=== PATIENT | female | born 1960 | race African-American/Black ===

== ENCOUNTER 2019-12-29 18:25 | Observation (INO) | payer MEDICARE, MEDICAID, SELFPAY ==
--- NOTE | ~2019-12-29 | XR_ITS ---
EXAMINATION: XR chest 1V portable 12/29/2019 20:51 INDICATION: Dyspnea. Weakness and vomiting. PROCEDURE: AP portable chest COMPARISON: No prior studies for comparison. FINDINGS: The lungs are clear. The cardiomediastinal silhouette is within normal limits. There are no pleural effusions. There is no pneumothorax suspected. There are degenerative changes of the rig ht shoulder. IMPRESSION: 1: NO ACUTE CARDIOPULMONARY DISEASE. Reviewed, dictated and finalized at location A.
--- NOTE | ~2019-12-29 | CT_ITS ---
EXAMINATION: CT abdomen pelvis w con DATE: 12/29/2019 22:02 INDICATION: Stomachache. Vomiting blood. TECHNIQUE: Computed tomography (CT) of the abdomen and pelvis was performed with 100 cc Omnipaque 350 intravenous contrast. The dose-length product was 416.68 mGy-cm. Automated exposure control and iter ative reconstruction technique were employed. COMPARISON: None. FINDINGS: There is bibasilar atelectasis. Heart size is normal. There is a small hiatal hernia. There is thickening of the esophagus, compatible with esophagitis. There is fatty infiltration of the live r. The spleen, pancreas, adrenal glands and kidneys are unremarkable. Gallbladder is present. There i s atherosclerosis of the aorta. No aneurysm. No lymphadenopathy. Normal appendix. No acute osseous ab normality.No lymphadenopathy. No free air or free fluid IMPRESSION: 1. Abnormal thickening of the mid and distal esophagus with the tarsal enhancement, compatible with e sophagitis. Small hiatal hernia. Reviewed, dictated and finalized at location A. IMPRESSION: 1. Abnormal thickening of the mid and distal esophagus with the tarsal enhancem ent, compatible with esophagitis. Small hiatal hernia.
[2019-12-29 19:05] VITALS: BP 121/90; PULSE 118; RESP 16; TEMP 37; O2SAT 100
[2019-12-29 19:28] LABS: Basophils Percent Auto 0.3 % (0.2-1.2); Eosinophils Absolute Auto 0.3 K/mm3 (0-0.3); Eosinophils Percent Auto 2.2 % (0-4.4); Hematocrit 38.4 % (37.0-47.0); Hemoglobin 12.4 g/dL (12.0-15.0); Immature Granulocyte Absolute 0.04 K/mm3 (0.00-0.031); Immature Granulocyte Percent A 0.3 % (0-0.5); Lymphocytes Absolute Auto 3.65 K/mm3 (0.9-3.2); Lymphocytes Percent Auto 26.4 % (18.3-44.2); Mean Corpuscular HGB Conc 32.3 g/dl (32-36); Mean Corpuscular Hemoglobin 27.3 pg (26-34); Mean Corpuscular Volume 84.4 fl (80-100); Mean Platelet Volume 8.4 fl (7.4-10.4); Monocytes Percent Auto 7.3 % (2.6-8.5); Neutrophils Absolute Auto 8.8 K/mm3 (1.3-6.7); Neutrophils Percent Auto 63.5 % (45.5-73.1); Platelet Count Result 473 k/mm3 (150-375); Red Blood Count 4.55 M/mm3 (4.2-5.4); Red Cell Distribution Width 14.1 % (11.5-14.5); White Blood Count 13.8 K/mm3 (4.5-10.0)
[2019-12-29 19:36] LABS: Prothrombin Time 12.7 Seconds (11.1-14.7)
[2019-12-29 19:37] LABS: Partial Thromboplastin Time 26.9 SECONDS (22.3-36.8)
[2019-12-29 19:38] LABS: Alanine Aminotransferase 24 U/L (4-35); Albumin Level 4.9 g/dL (3.5-5.1); Alkaline Phosphatase 102 U/L (38-126); Aspartate Amino Transferase 22 U/L (14-36); Bilirubin,Total 0.4 mg/dL (0.2-1.3); Blood Urea Nitrogen 23 mg/dL (7-17); Calcium 9.8 mg/dL (8.4-10.2); Carbon Dioxide 27 mmol/L (22-30); Chloride 96 mmol/L (98-107); Estimated CRCL calculation 46 ml/min; Estimated Glomerular Filt Rate 57; Glucose 149 mg/dL (65-105); Sodium 137 mmol/L (137-145)
--- NOTE | 2019-12-29 20:37 | ECG_ITS ---
Measurements Intervals [place] Rate: 114 P: 61 HI: 143 QRS: 16 QRSD: 76 T: 38 QT: 346 QTc: 477 Interpretive Statements [address]US [address] ELEVATION IN ANTERIOR LEADS- PROBABLY EARLY REPOLARIZATION BORDERLINE T WAVE ABNORMALITY- INFERIOR LEADS BASELINE ARTIFACT- I, II, AVR, V4 ABNORMAL ECG Electronically Signed On 12-30-2019 7:00:04 CDT by Won Chase D.O.
--- NOTE | 2019-12-29 20:49 | PC.NURSE ---
Spoke with Janee at [facility]. The pt c/o stomach ache, and vomited bright red blood x 1 , approx one basin full. Dr. Love made aware.
--- NOTE | 2019-12-29 20:59 | ED.GIBLEED ---
HPI - GI Bleed General Chief complaint: GI Bleed Stated complaint: vomited blood x1 Time Seen by Provider: 12/29/19 20:17 Source: patient Mode of arrival: EMS History of Present Illness HPI Narrative: This patient is a 59 year old female from [facility] who presents for evaluation of vomiting blood . Patient states she had nausea and vomiting for 3 days. She had 1 episode of diarrhea this morning. She states she was sent her because the last time she vomiting prior to coming it was blood in the emesis. She is unsure if there was blood. Nursing staff called the long-term , and they state patient vomited bright red blood and she reports abdominal pain to them. PAtient denies history of GI bleeding or liver disease. She denies chest pain, sob, or abdominal pain. Related Data Allergies Allergy/AdvReac Type Severity Reaction Status Date / Time No Known Allergies Allergy Verified 12/29/19 21:21 Review of Systems Review of Systems: All systems reviewed & are unremarkable except as noted in HPI and below Constitutional: Constitutional: Denies chills, Denies fever(s) and Denies weakness Respiratory: Respiratory: Denies cough, Denies dyspnea and Denies wheezing Gastrointestinal: Gastrointestinal: Reports abdominal pain, Reports diarrhea, Reports nausea and Reports vomiting Genitourinary: Genitourinary: Denies hematuria and Denies flank pain PMF Past Medical History Medical History (Updated 12/30/19 @ 00:15 by Abby Love MD) Chronic kidney disease Diabetes mellitus Hyperlipidemia Myocardial infarct, old Surgical History Surgical History (Updated 12/29/19 @ 21:06 by Abby Love MD) Amputation of right hand Social History Social History (Updated 12/29/19 @ 21:07 by Abby Love MD) Living arrangements: long-term Gender identity (if verbalized by the patient): Female Exam Eyes: EOM: EOMs intact bilaterally Chest: Chest palpation & inspection: normal inspection of the chest Resp: Effort & Inspection: normal respiratory effort and no retractions Auscultation: clear to auscultation bilaterally Cardio: Rate: tachycardic Rhythm: regular rhythm Heart sounds: no murmurs GI: GI Palp: Yes Soft to palpation, No Tenderness to palpation present (GI), No Guarding due to palpation present (GI) and No Rigid due to palpation Rectal Exam: normal sphincter tone and heme positive stool (brown stool) Skin: General skin exam: normal color Rashes: no rashes Neuro: General: patient oriented x3 and moves all extremities Extrem: Other: right hand with scars from partial hand amputation Course Consultations Consultation #1: I spoke with Dr. Santiago Shaw who agrees to consults and Protonix q12, no other recommendations. Date: 12/29/19 Time: 22:25 Consultation #2: I discussed case with Dr. Mccarthy who accepts patient to [facility] Date: 12/29/19 Time: 22:32 Vital Signs Vital signs: Vital Signs Temperature 98.6 F 12/29/19 19:05 Pulse Rate 118 H 12/29/19 19:05 Respiratory Rate 16 12/29/19 19:05 Blood Pressure 121/90 12/29/19 19:05 Pulse Oximetry 100 12/29/19 19:05 Temperature 98.5 F 12/29/19 22:21 Pulse Rate 110 H 12/29/19 22:21 Respiratory Rate 15 12/29/19 22:21 Blood Pressure 143/77 H 12/29/19 22:21 Pulse Oximetry 100 12/29/19 22:21 MDM - GI Bleed Lab Data Attestation: I reviewed the patient's lab results. Result diagrams: 12/29/19 19:12 12/29/19 19:12 Labs: Lab Results 12/29/19 12/29/19 12/29/19 Range/Units 19:12 19:12 19:12 WBC 13.8 H (4.5-10.0) K/mm3 RBC 4.55 (4.2-5.4) M/mm3 Hgb 12.4 (12.0-15.0) g/dL Hct 38.4 (37.0-47.0) % MCV 84.4 (80-100) fl MCH 27.3 (26-34) pg MCHC 32.3 (32-36) g/dl RDW 14.1 (11.5-14.5) % Plt Count 473 H (150-375) k/mm3 MPV 8.4 (7.4-10.4) fl Immature Gran % (Auto) 0.3 (0-0.5) % Neut % (Aut
[2019-12-29] MEDS: ONDANSETRON INJ 4 MG/2 ML VIAL IV PUSH (21:16)
[2019-12-29] MEDS: SODIUM CHLORIDE 0.9% IV 1,000 ML 999 ML IV CONT ×2 (21:17→22:20)
[2019-12-29] MEDS: PANTOPRAZOLE SODIUM IV 40 MG VIAL IV PUSH (21:18)
[2019-12-29 21:32] LABS: Lactic Acid Reflex 2.3 mmol/L (0.7-2.1)
[2019-12-29 22:21] VITALS: BP 143/77; PULSE 110; RESP 15; TEMP 36.9; O2SAT 100
[2019-12-29 22:40] LABS: Lipase 219 U/L (23-300)
[2019-12-29 23:24] LABS: Add Urine Microscopic? YES; Appearance Urine Clear (Clear); Bilirubin Urine Negative (Negative); Blood Urine Negative (Negative); Color Urine Yellow (Yellow); Glucose Urine UA Negative (Negative); Ketones Urine Negative (Negative); Leukocyte Esterase Ur Negative LEU/UL (Negative); Nitrate Urine Negative (Negative); Protein Urine 1+ mg/dL (Negative); RBC Urine 0-2 /hpf (0-2); Urobilinogen Urine Negative mg/dL (<2.0); WBC Urine 0-3 /hpf
[2019-12-29 23:25] LABS: Specific Grav Ur 1.041 (1.001-1.035)
[2019-12-30] VITALS (18 sets, daily range): BP systolic 120–158; BP diastolic 62–97; PULSE 97–116; RESP 12–21; TEMP 36.4–36.8; O2SAT 99–100; BMI 25.7
[2019-12-30 00:16] LABS: Reflex Lactic Acid Yes or No Add Lactic
--- NOTE | 2019-12-30 01:37 | ADMGEN ---
This patient, Monique Adorno, was admitted to Medical Room 243-01. Patient/family oriented to hospital policies and general routines including ID bracelet, bed and alarms, visiting hours, pain management, procedures, bathroom and other care routines, personal items, smoking policy, room service/diet, and visiting hours. Valuables list has been completed. Information on how to activate the Rapid Response Team has been discussed. Patient/Family are encouraged to report perceived risks to care and to ask questions if they do not understand what they are told or what they should do.
[2019-12-30] MEDS: SODIUM CHLORIDE 0.9% IV 1,000 ML 125 ML IV CONT (02:04)
[2019-12-30 02:24] LABS: Lactic Acid 0.9 mmol/L (0.7-2.1)
[2019-12-30 05:43] LABS: Hematocrit 34.9 % (37.0-47.0); Hemoglobin 11.1 g/dL (12.0-15.0)
[2019-12-30 07:59] LABS: Glucose Point of Care 179 (65-105)
--- NOTE | 2019-12-30 08:00 | PC.NURSE ---
To GI Lab per kurtis, IV saline locked. Report given to ANGY Grover.
[2019-12-30 08:28] LABS: Anion Gap 14.6 mmol/L (7-16); Blood Urea Nitrogen 14 mg/dL (7-17); Calcium 8.8 mg/dL (8.4-10.2); Carbon Dioxide 24 mmol/L (22-30); Chloride 101 mmol/L (98-107); Estimated CRCL calculation 74 ml/min; Estimated Glomerular Filt Rate > 60; Glucose 145 mg/dL (65-105); Potassium 3.6 mmol/L (3.4-5.0); Sodium 136 mmol/L (137-145)
--- NOTE | 2019-12-30 08:28 | WPDANESEPPF ---
Anes - Initial Pre Proc Eval Procedure: Operation Date: 12/30/19 14:45 Proposed Procedures p Esophagogastroduodenoscopy - Adriel Calero MD Date/Time: 12/30/19 08:28 Surgeon: Chioma Ceja PA-C Pre Op Diagnosis: Upeer gi bleeding, esophagitis Patient Data Age: 59 Gender: F Height: 1.63 m Weight: 68 kg Last Vital Signs Temp 36.6 C 12/30/19 06:00 Pulse 97 12/30/19 08:00 Resp 12 12/30/19 06:00 BP 132/85 12/30/19 06:00 Pulse Ox 100 12/30/19 06:00 Allergies Allergy/AdvReac Type Severity Reaction Status Date / Time No Known Allergies Allergy Verified 12/29/19 21:21 Home Medications Medication Instructions Recorded Confirmed Type Acidophilus 1 cap PO BID 12/30/19 12/30/19 History Levemir U-100 Insulin 24 unit SUBCUT HS 12/30/19 12/30/19 History Novolog U-100 Insulin aspart 5 units SUBCUT AC 12/30/19 12/30/19 History amlodipine [Norvasc] 5 mg PO DAILY 12/30/19 12/30/19 History aspirin [Adult Low Dose Aspirin] 81 mg PO DAILY 12/30/19 12/30/19 History atorvastatin 40 mg PO HS 12/30/19 12/30/19 History gabapentin 600 mg PO TID 12/30/19 12/30/19 History lisinopril 20 mg PO DAILY 12/30/19 12/30/19 History magnesium oxide [MagOx] 400 mg PO BID 12/30/19 12/30/19 History metformin 1,000 mg PO BID 12/30/19 12/30/19 History potassium chloride 40 meq PO DAILY 12/30/19 12/30/19 History tolterodine [Detrol] 2 mg PO BID 12/30/19 12/30/19 History Laboratory Tests 12/29/19 12/29/19 12/29/19 19:12 19:12 19:12 WBC 13.8 K/mm3 H K/mm3 (4.5-10.0) RBC 4.55 M/mm3 M/mm3 (4.2-5.4) Hgb 12.4 g/dL g/dL (12.0-15.0) Hct 38.4 % % (37.0-47.0) MCV 84.4 fl fl (80-100) MCH 27.3 pg pg (26-34) MCHC 32.3 g/dl g/dl (32-36) RDW 14.1 % % (11.5-14.5) Plt Count 473 k/mm3 H k/mm3 (150-375) MPV 8.4 fl fl (7.4-10.4) Immature Gran % (Auto) 0.3 % % (0-0.5) Neut % (Auto) 63.5 % % (45.5-73.1) Lymph % (Auto) 26.4 % % (18.3-44.2) [place] % (Auto) 7.3 % % (2.6-8.5) Eos % (Auto) 2.2 % % (0-4.4) Baso % (Auto) 0.3 % % (0.2-1.2) Lymph # (Auto) 3.65 K/mm3 H K/mm3 (0.9-3.2) [place] # (Auto) 1.0 K/mm3 H K/mm3 (0.1-0.6) Eos # (Auto) 0.3 K/mm3 K/mm3 (0-0.3) Baso # (Auto) 0.0 K/mm3 K/mm3 (0.0-0.1) Abs Immat Gran (auto) 0.04 K/mm3 H K/mm3 (0.00-0.031) Absolute Neuts (auto) 8.8 K/mm3 H K/mm3 (1.3-6.7) Absolute Nucleated RBC 0.0 K/mm3 K/mm3 (0.0-0.012) Nucleated RBC % 0.0 % % (0.0-0.2) PT 12.7 Seconds Seconds (11.1-14.7) INR 1.0 APTT 26.9 SECONDS SECONDS (22.3-36.8) Sodium 137 mmol/L mmol/L (137-145) Potassium 4.0 mmol/L mmol/L (3.4-5.0) Chloride 96 mmol/L L mmol/L (98-107) Carbon Dioxide 27 mmol/L mmol/L (22-30) Anion Gap 18.0 mmol/L H mmol/L (7-16) BUN 23 mg/dL H mg/dL (7-17) Creatinine 1.00 mg/dL mg/dL (0.7-1.0) Estim Creat Clear Calc 46 ml/min ml/min Estimated GFR 57 L (59 - ) Glucose 149 mg/dL H mg/dL (65-105) POC Capillary Glucose Lactic Acid Calcium 9.8 mg/dL mg/dL (8.4-10.2) Total Bilirubin 0.4 mg/dL mg/dL (0.2-1.3) AST 22 U/L U/L (14-36) ALT 24 U/L U/L (4-35) Alkaline Phosphatase 102 U/L U/L (38-126) Total Protein 9.0 g/dL H g/dL (6.3-8.2) Albumin 4.9 g/dL g/dL (3.5-5.1) Lipase Urine Color Urine Appearance Urine pH Ur Specific [place] Urine Protein Urine Glucose (UA) Urine Ketones Ur Blood (Man) Urine Nitrate Urine Bilirubin Urine Urobilinogen
[2019-12-30] MEDS: LACTATED RINGERS 1,000 ML 150 ML IV CONT (08:29)
[2019-12-30 08:43] LABS: Glucose Point of Care 135 (65-105)
--- NOTE | 2019-12-30 09:26 | WPDGICN ---
Assessment and Plan Assessment and plan (1) Hematemesis: Code(s): K92.0 - Hematemesis Status: Acute Assessment and Plan: will proceed with egd, CT scan reviewed and apparently with esophagitis. more recommendations after EGD (2) Esophagitis: Code(s): K20.9 - Esophagitis, unspecified Status: Acute Assessment and Plan: continue with ppi (3) CAD (coronary artery disease): Code(s): I25.10 - Atherosclerotic heart disease of [place] coronary artery without angina pectoris Status: Acute (4) CVA (cerebral vascular accident): Code(s): I63.9 - Cerebral infarction, unspecified Status: Acute Assessment and Plan: she is staying in a longterm since had CVA, denies new changes. GI Consult Note Consult date/time: 12/30/19 09:26 Reason for consult: hematemesis HPI: Monique Adorno is a 59 year old female with history of CAD, CVA, DM and prolonged hospitalization in May with also right hand amputation now residing in a local rehabilitation center. She came here with 3 days of nausea and vomiting, yesterday says that had small amount of blood with vomit. Only using baby aspirin, no other blood thinners. She does not remember having scope. CT scan showed possible distal esophagitis. She is npo, started on iv protonix. Hb today 11.1 from 12.4 Review of Systems Constitutional: Constitutional: Denies headache(s) Comments: unable to walk since stroke, she lives in a longterm Eyes: Eyes: Denies blurry vision ENT: Reports Normal hearing present, Denies headache(s) and Denies neck pain Cardiovascular: Cardiovascular: Denies chest pain and Denies dyspnea Respiratory: Respiratory: Denies dyspnea Gastrointestinal: Gastrointestinal: Reports no additional gastrointestinal complaints Genitourinary: Genitourinary: Denies dysuria Musculoskeletal: Musculoskeletal: Denies neck pain Integumentary/Breasts: Skin/Breast: Denies dry skin Neurologic: Reports Normal hearing present, Denies headache(s) and Denies weakness Psychiatric: Psychiatric: Denies anxiety Endocrine: Endocrine: Denies change in body appearance Hematologic/Lymphatic: Hematologic/Lymphatic: Denies easy bleeding Allergic/Immunologic: Allergic/Immunologic: Denies urticaria PMFSH Past Medical History Medical History (Updated 12/30/19 @ 09:31 by Adriel Calero MD) CAD (coronary artery disease) Chronic kidney disease CVA (cerebral vascular accident) multiple - paraplegic now Diabetes mellitus Hematemesis History of heart attack 2016, and 2019 - no stents Hyperlipidemia Surgical History Surgical History (Updated 12/29/19 @ 21:06 by Abby Love MD) Amputation of right hand Family History Family History (Updated 12/30/19 @ 01:47 by Annette Ballard RN) Mother Renal failure Social History Social History (Updated 12/29/19 @ 21:07 by Abby Love MD) Smoking status: Never smoker Alcohol intake: never Substance use: never Substance use type: does not use Living arrangements: longterm Gender identity (if verbalized by the patient): Female Spiritual care concerns: No Meds Home Medications and Allergies Home Medications Medication Instructions Recorded Confirmed Type Acidophilus 1 cap PO BID 12/30/19 12/30/19 History Levemir U-100 Insulin 24 unit SUBCUT 12/30/19 12/30/19 History Novolog U-100 Insulin aspart 5 units SUBCUT 12/30/19 12/30/19 History amlodipine [Norvasc] 5 mg PO DAILY 12/30/19 12/30/19 History aspirin [Adult Low Dose Aspirin] 81 mg PO DAILY 12/30/19 12/30/19 History atorvastatin 40 mg PO HS 12/30/19 12/30/19 History gabapentin 600 mg PO TID 12/30/19 12/30/19 History lisinopril 20 mg PO DAILY 12/30/19 12/30/19 History magnesium oxide [MagOx] 400 mg PO BID 12/30/19 12/30/19 History metformin 1,000 mg PO BID 12/30/19 12/30/19 History potassium chloride 40 meq PO DAILY 12/30/19 12/30/19 History tolterodine [Detrol] 2 m
--- NOTE | 2019-12-30 09:57 | PCOTNOTE ---
Attempted OT evaluation, pt is currently off the unit for a test, will attempt at later time.
[2019-12-30] MEDS: PANTOPRAZOLE SODIUM IV 40 MG VIAL IV PUSH (10:27)
--- NOTE | 2019-12-30 10:31 | PC.NURSE ---
Returned from GI Lab. Report received from ANGY Boyle.
[2019-12-30 10:48] LABS: Hematocrit 37.3 % (37.0-47.0); Hemoglobin 12.1 g/dL (12.0-15.0)
[2019-12-30] MEDS: SUCRALFATE SUSP 100 MG/ML 10 ML UDC 1000 MG PO ×3 (11:12→21:45)
[2019-12-30 11:37] LABS: Glucose Point of Care 166 (65-105)
--- NOTE | 2019-12-30 12:16 | PM.IMHP ---
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 She reports that she had nausea and vomiting for 3 days. She reports that she vomited 3x per day after each meal. She reports that yesterday, she had one episode of vomiting with bright red blood. She also developed diarrhea yesterday. She denies having any abdominal pain but the ED note reports that she did complain of pain to the detention staff. She denies any prior hx of similar sx or GI bleed. She denies nausea, vomiting, chest pain, and dyspnea. She denies hematochezia and melena. She has no urinary complaints. She reports a good appetite. She denies recent NSAID use. She denies weight change. She denies any known sick contacts. Initial laboratory evaluation emergency department revealed WBC 13,800 with lymphocyte predominance, Hb 12.4, Hct 38.4, platelets 473, sodium 137, potassium 4.0, chloride 96, CO2 27, BUN 23, Cr 1.0, lactic acid 2.3, calcium 9.8, bilirubin 0.4, AST 22, ALT 24, ALP 102, and UA with high specific gravity and 1+ protein. CXR had no evidence of consolidation and no other acute cardiopulmonary disease processes. CT abd/pelvis abnormal thickening of the mid and distal esophagus with tarsal enhancement consistent with esophagitis, small hiatal hernia, hepatic steatosis, and aortic atherosclerosis. She was admitted to the hospitalist service and GI was consulted for further recommendations. Review of Systems Review of Systems: Narrative: Constitutional: Denies fever, chills, fatigue, and appetite change. Denies weight change. Eyes: Denies vision change. No additional eye complaints. ENT: Denies change in hearing, nasal congestion, dysphagia, odynophagia, and sore throat. Cardiovascular: Denies palpitations and chest pain. Denies PND and orthopnea. Denies dyspnea on exertion. Respiratory: Denies cough and shortness of breath. Gastrointestinal: Denies abdominal pain. Reports vomiting for 3 days prior to presentation. She has no acute complaints. Genitourinary: Denies dysuria, frequency, urgency, and hesitancy. She is on tolterodine for overactive bladder. Musculoskeletal: Denies joint pain and swelling. Denies muscle cramps and weakness. Her right 2nd-4th fingers are amputated. Skin: Denies lesions and wounds. Inicisions at right hand well-healed as well as skin graft. No additional skin complaints. Neurologic: Denies focal weakness, paresthesias, confusion, and speech change. She reports chronic gait dysfunction following CVA but can ambulate with assistance. Psychiatric: Denies mood change. Denies anxiety and depression. Hematologic: Denies easy bruising and bleeding. All systems reviewed & are unremarkable except as noted in HPI and below PMFSH Past Medical History Medical History (Updated 12/30/19 @ 13:06 by Chioma Ceja PA-C) CAD (coronary artery disease) Chronic kidney disease CVA (cerebral vascular accident) The pt reports a hx of multiple CVAs Diabetes mellitus Hematemesis History of heart attack 2016, and 2019 - no stents Hyperlipidemia Surgical History Surgical History (Updated 12/30/19 @ 12:48 by Chioma Ceja PA-C) Amputation of right hand S/P breast lumpectomy Family History Family History (Updated 12/30/19 @ 12:49 by Chioma Ceja PA-C) Mother Renal failure Diabetes mellitus Social History Social History (Updated 12/30/19 @ 12:50 by Chioma Ceja PA-C) Social History: Mrs. Adorno lives at [facility]. She has no children. She wishes to be a full code and has designated her cousin, Samara Clayton, as her surrogate decision maker. She denies alcohol, tobacco, a
[2019-12-30] MEDS: amLODIPine BESYLATE 5 MG TABLET PO (12:57)
[2019-12-30] MEDS: lisinopriL 20 MG TABLET PO (12:57)
[2019-12-30] MEDS: GABAPENTIN 300 MG CAPSULE PO ×2 (13:00→21:45)
[2019-12-30] MEDS: MAGNESIUM OXIDE 400 MG TABLET PO (16:22)
[2019-12-30] MEDS: SACCHAROMYCES BOULARDII 250 MG CAPSULE PO (16:22)
[2019-12-30] MEDS: INSULIN ASPART (*BKC) 100 UNITS/ML SUB-Q (16:25)
[2019-12-30 16:28] LABS: Glucose Point of Care 282 (65-105)
[2019-12-30 16:40] LABS: Hematocrit 36.1 % (37.0-47.0); Hemoglobin 11.8 g/dL (12.0-15.0)
[2019-12-30] MEDS: TOLTERODINE TARTRATE 2 MG TABLET PO (16:56)
[2019-12-30] MEDS: PANTOPRAZOLE 40 MG TABLET PO (21:46)
[2019-12-30] MEDS: INSULIN DETEMIR 100 UNITS/ML 15 UNITS SUB-Q (21:46)
[2019-12-30] MEDS: ATORVASTATIN 40 MG TABLET PO (21:46)
[2019-12-30 22:45] LABS: Glucose Point of Care 297 (65-105)
[2019-12-31] VITALS: PULSE 96
[2019-12-31 04:00] VITALS: PULSE 105
[2019-12-31 05:25] LABS: Hematocrit 34.2 % (37.0-47.0); Hemoglobin 10.9 g/dL (12.0-15.0); Mean Corpuscular HGB Conc 31.9 g/dl (32-36); Mean Corpuscular Hemoglobin 26.9 pg (26-34); Mean Corpuscular Volume 84.4 fl (80-100); Mean Platelet Volume 8.2 fl (7.4-10.4); Platelet Count Result 418 k/mm3 (150-375); Red Blood Count 4.05 M/mm3 (4.2-5.4); Red Cell Distribution Width 13.9 % (11.5-14.5); White Blood Count 10.4 K/mm3 (4.5-10.0)
[2019-12-31 05:40] LABS: Alanine Aminotransferase 19 U/L (4-35); Albumin Level 4.3 g/dL (3.5-5.1); Alkaline Phosphatase 135 U/L (38-126); Aspartate Amino Transferase 18 U/L (14-36); Bilirubin,Total 0.4 mg/dL (0.2-1.3); Blood Urea Nitrogen 12 mg/dL (7-17); Calcium 9.2 mg/dL (8.4-10.2); Carbon Dioxide 24 mmol/L (22-30); Chloride 101 mmol/L (98-107); Estimated CRCL calculation 64 ml/min; Estimated Glomerular Filt Rate > 60; Glucose 285 mg/dL (65-105); Magnesium 1.7 mg/dL (1.6-2.3); Sodium 140 mmol/L (137-145)
[2019-12-31] MEDS: GABAPENTIN 300 MG CAPSULE PO ×2 (05:45→16:50)
[2019-12-31] MEDS: SUCRALFATE SUSP 100 MG/ML 10 ML UDC 1000 MG PO ×3 (05:45→16:50)
[2019-12-31 06:00] VITALS: BP 126/76; PULSE 105; RESP 12; TEMP 36.6; O2SAT 99
[2019-12-31 08:00] VITALS: PULSE 107
[2019-12-31 08:06] LABS: Glucose Point of Care 246 (65-105)
--- NOTE | 2019-12-31 08:09 | WPDANESPN ---
Anes - Prog Note Post-Op Date/Time: 12/31/19 08:09 Cardiovascular status: normal Respiratory status: normal Airway patency: baseline Mental status: baseline Post-Op hydration status: normal Vital Signs: Last Vital Signs Temp 36.6 C 12/31/19 06:00 Pulse 105 H 12/31/19 06:00 Resp 12 12/31/19 06:00 BP 126/76 12/31/19 06:00 Pulse Ox 99 12/31/19 06:00 I/O: Intake & Output 12/30/19 12/31/19 12/31/19 23:59 07:59 15:59 Intake Total 1690 250 Balance 1690 250 Laboratory Tests 12/31/19 05:05 12/31/19 05:05 12/30/19 12/30/19 12/30/19 05:15 08:24 10:42 WBC RBC Hgb 12.1 Hct 37.3 MCV MCH MCHC RDW Plt Count MPV Sodium 136 L Potassium 3.6 Chloride 101 Carbon Dioxide 24 Anion Gap 14.6 BUN 14 D Creatinine 0.60 L Estim Creat Clear Calc 74 Estimated GFR > 60 Glucose 145 H POC Capillary Glucose 135 H Calcium 8.8 Magnesium Total Bilirubin AST ALT Alkaline Phosphatase Total Protein Albumin 12/30/19 12/30/19 12/30/19 11:14 16:22 16:35 WBC RBC Hgb 11.8 L Hct 36.1 L MCV MCH MCHC RDW Plt Count MPV Sodium Potassium Chloride Carbon Dioxide Anion Gap BUN Creatinine Estim Creat Clear Calc Estimated GFR Glucose POC Capillary Glucose 166 H 282 H Calcium Magnesium Total Bilirubin AST ALT Alkaline Phosphatase Total Protein Albumin 12/30/19 12/31/19 12/31/19 21:44 05:05 05:05 WBC 10.4 H RBC 4.05 L Hgb 10.9 L Hct 34.2 L MCV 84.4 MCH 26.9 MCHC 31.9 L RDW 13.9 Plt Count 418 H MPV 8.2 Sodium 140 Potassium 4.0 Chloride 101 Carbon Dioxide 24 Anion Gap 19.0 H BUN 12 Creatinine 0.70 Estim Creat Clear Calc 64 Estimated GFR > 60 Glucose 285 H POC Capillary Glucose 297 H Calcium 9.2 Magnesium 1.7 Total Bilirubin 0.4 AST 18 ALT 19 Alkaline Phosphatase 135 H Total Protein 8.0 Albumin 4.3 12/31/19 08:04 WBC RBC Hgb Hct MCV MCH MCHC RDW Plt Count MPV Sodium Potassium Chloride Carbon Dioxide Anion Gap BUN Creatinine Estim Creat Clear Calc Estimated GFR Glucose POC Capillary Glucose 246 H Calcium Magnesium Total Bilirubin AST ALT Alkaline Phosphatase Total Protein Albumin Post-procedural complaints: none Patient Feedback: Patient satisfied with anesthetic care.
[2019-12-31] MEDS: SACCHAROMYCES BOULARDII 250 MG CAPSULE PO ×2 (08:19→16:50)
[2019-12-31] MEDS: POTASSIUM CHLORIDE 20 MEQ TABLET 40 MEQ PO (08:20)
[2019-12-31] MEDS: MAGNESIUM OXIDE 400 MG TABLET PO ×2 (08:20→16:50)
[2019-12-31] MEDS: lisinopriL 20 MG TABLET PO (08:20)
[2019-12-31] MEDS: TOLTERODINE TARTRATE 2 MG TABLET PO (08:20)
[2019-12-31] MEDS: INSULIN ASPART (*BKC) 100 UNITS/ML SUB-Q ×3 (08:21→16:59)
[2019-12-31] MEDS: amLODIPine BESYLATE 5 MG TABLET PO (08:21)
[2019-12-31] MEDS: PANTOPRAZOLE 40 MG TABLET PO (09:20)
[2019-12-31 11:46] LABS: Glucose Point of Care 279 (65-105)
[2019-12-31 12:00] VITALS: PULSE 124
--- NOTE | 2019-12-31 14:18 | WPDGIPROGNO ---
Progress Note: A&P Assessment and Plan (1) Hematemesis: Qualifiers: Nausea presence: with nausea Qualified Code(s): K92.0 - Hematemesis Code(s): K92.0 - Hematemesis Status: Acute Assessment and Plan: denies any more, hb 11 (2) Erosive esophagitis: Code(s): K22.10 - Ulcer of esophagus without bleeding Status: Acute Assessment and Plan: EGD showed erosive esophagitis, biopsies of stomach c/w gastritis, no H pylori continue with ppi twice daily, also on carafate with meals consider egd in 6 months or so to assess for healing tolerating diet now (3) CVA (cerebral vascular accident): Qualifiers: CVA mechanism: unspecified Qualified Code(s): I63.9 - Cerebral infarction, unspecified Code(s): I63.9 - Cerebral infarction, unspecified Status: Chronic (4) CAD (coronary artery disease): Qualifiers: Coronary Disease-Associated Artery/Lesion type: unspecified vessel or lesion type [place] vs. transplanted heart: [place] heart Associated angina: without angina Qualified Code(s): I25.10 - Atherosclerotic heart disease of [place] coronary artery without angina pectoris Code(s): I25.10 - Atherosclerotic heart disease of [place] coronary artery without angina pectoris Status: Chronic (5) Dehydration: Code(s): E86.0 - Dehydration Status: Acute Assessment and Plan: resolved Subjective Date/time seen: 12/31/19 14:18 Interval history: no more nausea and tolerating diet Review of Systems Review of Systems: All systems reviewed & are unremarkable except as noted in HPI and below Exam Const: General: comfortable and no acute distress HENMT: General nose exam: Normal nares present Eyes: General: appearance normal, both eyes and all related structures Neck: Neck: no JVD Resp: Auscultation: clear to auscultation bilaterally Cardio: Rate: regular rate Rhythm: regular rhythm GI: Inspection: non-distended GI Palp: Yes Soft to palpation, No Tenderness to palpation present (GI) and No Guarding due to palpation present (GI) Auscultation: normal bowel sounds Skin: General skin exam: normal color Neuro: Speech: normal speech Extrem: Other: partial right hand amputation Psych: Mental Status: mental status grossly normal Objective Data Vital Signs Vital Signs: Vital Signs - 24 hr 12/30/19 16:00 12/30/19 20:00 12/30/19 20:36 Temperature 97.8 F Pulse Rate 103 H 108 H 107 H Respiratory Rate 12 Blood Pressure 120/72 Pulse Oximetry 100 12/31/19 00:00 12/31/19 04:00 12/31/19 06:00 Temperature 97.8 F Pulse Rate 96 105 H 105 H Respiratory Rate 12 Blood Pressure 126/76 Pulse Oximetry 99 12/31/19 08:00 12/31/19 12:00 Temperature Pulse Rate 107 H 124 H Respiratory Rate Blood Pressure Pulse Oximetry Intake/Output Intake/Output: Intake & Output 12/28/19 12/29/19 12/30/19 12/31/19 23:59 23:59 23:59 23:59 Intake Total 1999 2140 490 Balance 1999 2140 490 Meds/Results Medications: Active Medications Generic Name Dose Route Start Last Admin Trade Name Freq PRN Reason Stop Dose Admin Amlodipine Besylate 5 mg 12/30/19 12:25 12/31/19 08:21 Norvasc PO 5 mg DAILY CAROLYN Administration Atorvastatin Calcium 40 mg 12/30/19 21:00 12/30/19 21:46 Lipitor PO 40 mg HS CAROLYN Administration Dextrose 12.5 gm 12/30/19 07:59 Dextrose 50% Syringe IV PUSH PRN PRN Hypoglycemia Protocol Gabapentin 300 mg 12/30/19 14:00 12/31/19 05:45 Neurontin PO 300 mg Q8HR CAROLYN Administration Glucagon 1 mg 12/30/19 07:59 Glucagon For Inj IM PRN PRN Hypoglycemia Protocol Glucose 15 gm 12/30/19 07:59 Glutose 15 PO PRN PRN Hypoglycemia Protocol Hydralazine HCl 10 mg 12/30/19 08:02 Apresoline Hcl Inj IV PUSH Q8H PRN SBP >180 DBP >100 Dextrose 1,000 mls @ 100 mls/hr 12/30/19 07:
--- NOTE | 2019-12-31 15:27 | PM.DS ---
DS: Admitting Diagnosis Admitting Diagnosis Admitting Diagnosis: Hematemesis DS: Discharge Diagnosis Discharge Diagnosis (1) Hematemesis: Qualifiers: Nausea presence: with nausea Qualified Code(s): K92.0 - Hematemesis Code(s): K92.0 - Hematemesis Status: Acute Assessment and Plan: 3 days of vomiting, hematemesis reported by NH. CT abd/pelvis suggests esophagitis. EGD was performed and Dr Henderson notes it demonstrated erosive esophagitis and gastritis. She was treated with protonix BID and zofran as needed. Symptoms resolved and she was tolerating a diet prior to discharge. (2) Tachycardia: Code(s): R00.0 - Tachycardia, unspecified Status: Acute Assessment and Plan: Sinus tachycardia noted. NH noted she had a history of this. She was gently hydrated and stable at discharge. Asymptomatic. (3) Dehydration: Code(s): E86.0 - Dehydration Status: Acute Assessment and Plan: Treated with IV fluids. (4) Esophagitis: Code(s): K20.9 - Esophagitis, unspecified Status: Acute Assessment and Plan: See above. (5) Diabetes mellitus: Qualifiers: Diabetes mellitus type: type 2 Diabetes mellitus salvage determiner insulin use: with salvage determiner use Diabetes mellitus complication status: with neurologic complications Diabetes mellitus complication detail: with polyneuropathy Qualified Code(s): E11.42 - Type 2 diabetes mellitus with diabetic polyneuropathy; Z79.4 - shelter (current) use of insulin Code(s): E11.9 - Type 2 diabetes mellitus without complications Status: Acute Assessment and Plan: Home medications resumed at discharge. BGs reasonably controlled. (6) CAD (coronary artery disease): Qualifiers: Coronary Disease-Associated Artery/Lesion type: unspecified vessel or lesion type [place] vs. transplanted heart: [place] heart Associated angina: without angina Qualified Code(s): I25.10 - Atherosclerotic heart disease of [place] coronary artery without angina pectoris Code(s): I25.10 - Atherosclerotic heart disease of [place] coronary artery without angina pectoris Status: Chronic Assessment and Plan: Chronic and stable with no acute issues. Continue atorvastatin. ASA resumed at discharge. (7) CVA (cerebral vascular accident): Qualifiers: CVA mechanism: unspecified Qualified Code(s): I63.9 - Cerebral infarction, unspecified Code(s): I63.9 - Cerebral infarction, unspecified Status: Chronic Assessment and Plan: She reports a hx of multiple CVAs. She reports gait dysfunction following CVAs but is able to ambulate with assistance. She notes that she typically uses a wheelchair. Continue atorvastatin. DS: Summary Hospital Course Hospital Course: Date of Service 12/31/19 Ms. Adorno is a 59yo F with history of CAD, type 2 DM, prior CVAs who presented from [facility] to the ED for evaluation of hematemesis. CT demonstrated distal esophageal wall thickening consistent with esophagitis. GI was consulted and she underwent EGD by Dr Henderson 12/29 which demonstrated erosive esophagitis with gastritis. Biopsies were obtained. She was treated with PPI twice daily and carafate with meals. She can follow up with Dr Henderson in 6 months for repeat EGD to assess for healing. Her vomiting had resolved and she was tolerating a diet prior to discharge. She was hemodynamically stable for discharge back to the [place] [facility] 12/31/19 to follow up with PCP. Time Spent with Patient Time attestation: Total time spent providing and/or coordinating discharge services: 35 minutes Exam Narrative: Exam Narrative: General: Very pleasant, well-nourished, well-deve
[2019-12-31 17:07] LABS: Glucose Point of Care 390 (65-105)
[2019-12-31 17:49] LABS: Glucose Point of Care 387 (65-105)
== END 2019-12-31 18:21 ==
LOC: ANHED 22:53 → ANH2MED 23:30
PROVIDERS: Internal Medicine Gastroenterology; Physician Assistant; Admitting Provider Internal Medicine; Emergency Provider General Practice; Visit Provider Physician Assistant
PROC: 0DJ08ZZ Inspection of Upper Intestinal Tract, Via Natural or Artificial Opening Endoscopic (ICD-10-PCS; CPT 43235; principal; 2019-12-30 14:45)
DX: K92.0 Hematemesis (principal); R00.0 Tachycardia, unspecified; E86.0 Dehydration; K22.10 Ulcer of esophagus without bleeding; K21.0 Gastro-esophageal reflux disease with esophagitis; K44.9 Diaphragmatic hernia without obstruction or gangrene; K25.9 Gastric ulcer, unspecified as acute or chronic, without hemorrhage or perforation; K29.50 Unspecified chronic gastritis without bleeding; I25.10 Atherosclerotic heart disease of native coronary artery without angina pectoris; E78.5 Hyperlipidemia, unspecified; I25.2 Old myocardial infarction; I12.9 Hypertensive chronic kidney disease with stage 1 through stage 4 chronic kidney disease, or unspecified chronic kidney disease; N18.9 Chronic kidney disease, unspecified; E11.22 Type 2 diabetes mellitus with diabetic chronic kidney disease; Z86.73 Personal history of transient ischemic attack (TIA), and cerebral infarction without residual deficits; Z79.82 Long term (current) use of aspirin; Z79.4 Long term (current) use of insulin; Z79.84 Long term (current) use of oral hypoglycemic drugs
CPT/HCPCS: 43239; 36415; 51701; 71045; 74177; 80048; 80053; 81001; 83605; 83690; 83735; 85014; 85018; 85025; 85027; 85610; 85730; 86850; 86900; 86901; 87081; 88305; 93005; 96361; 96374; 96375; 96376; 97110; 97161; 97165; 97530; 99285; A9270; C9113; G0378; J1815; J2405; J2704; J7030; J7120; Q9967

== ENCOUNTER 2024-04-12 05:24 | Emergency (ER) | payer MEDICARE, MEDICAID, SELFPAY ==
[2024-04-12 05:24] VITALS: BP 149/76; RESP 16; TEMP 36.4; O2SAT 100
--- NOTE | 2024-04-12 05:42 | ED_ITS ---
HPI - Fall General Chief Complaint: Fall Stated Complaint: fall Time Seen by Provider: 04/12/24 05:27 Source: patient and EMS Mode of arrival: EMS Limitations: no limitations History of Present Illness HPI Narrative: This is a 63-year-old female, with history of hypertension and diabetes, brought in by EMS from her [place] [facility] after a ground level fall. The patient states a new pillow was placed on her wheelchair. She states she slipped forward from her wheelchair and landed on her bottom on the floor. She denies head injury, pain, chest pain, shortness of breath, palpitations, weakness/ numbness, nausea or vomiting. She has no complaints at this time. EMS reports transport was requested by the facility per protocol due to the patient taking aspirin. Vital signs reported as unremarkable EN route. Related Data Home Medications Medication Instructions Recorded Confirmed Acidophilus 1 cap PO BID 12/30/19 12/25/23 Levemir U-100 Insulin 24 unit subcut HS 12/30/19 12/25/23 Novolog U-100 Insulin aspart 5 units subcut AC 12/30/19 12/25/23 amlodipine 5 mg tablet (Norvasc) 5 mg PO DAILY 12/30/19 12/25/23 aspirin 81 mg tablet,delayed 81 mg PO DAILY 12/30/19 12/25/23 release (Adult Low Dose Aspirin) atorvastatin 40 mg tablet 40 mg PO HS 12/30/19 12/25/23 lisinopril 20 mg tablet 20 mg PO DAILY 12/30/19 12/25/23 magnesium oxide 400 mg (241.3 mg 400 mg PO BID 12/30/19 12/25/23 magnesium) tablet (MagOx) metformin 1,000 mg tablet 1,000 mg PO BID 12/30/19 12/25/23 potassium chloride 40 meq PO DAILY 12/30/19 12/25/23 tolterodine 2 mg tablet (Detrol) 2 mg PO BID 12/30/19 12/25/23 Allergies Allergy/AdvReac Type Severity Reaction Status Date / Time No Known Allergies Allergy Verified 01/25/24 12:01 Review of Systems Review of Systems: All systems reviewed & are unremarkable except as noted in HPI and below PMFSH Past Medical History Medical History CAD (coronary artery disease) Chronic kidney disease Closed fracture of distal phalanx of great toe CVA (cerebral vascular accident) The pt reports a hx of multiple CVAs Diabetes mellitus Erosive esophagitis Hematemesis History of heart attack 2016, and 2019 - no stents Hyperlipidemia Left foot pain Surgical History Surgical History Amputation of right hand S/P breast lumpectomy Family History Family History Mother Renal failure Diabetes mellitus Unknown Hypertension Diabetes mellitus High cholesterol Arthritis Social History Social History Social History: Mrs. Adorno lives at [facility]. She has no children. She wishes to be a full code and has designated her cousin, Samara Clayton, as her surrogate decision maker. She denies alcohol, tobacco, and illicit substance use. Smoking status: Never smoker Alcohol intake: never Substance use: never Substance use type: does not use Living arrangements: [facility] Gender identity (if verbalized by the patient): Female Spiritual care concerns: No Exam Narrative: GENERAL: Well-developed, well-nourished, and in no acute distress. HEAD: Normocephalic, atraumatic. EYES: PERRLA and EOMI. ENT: Nares clear, no rhinorrhea or epistaxis. Mucous membranes moist. Oropharynx without tonsillar hypertrophy exudate or other lesions. Bilateral TMs pearly [place] nonbulging No hemotympanum NECK: Supple. No midline spine tenderness to palpation, step-off or crepitus CHEST: Clear to auscultation. No respiratory distress. No wheezes rales or rhonchi HEART: Regular rate and rhythm. No murmur heard. Normal peripheral pulses. ABDOMEN: Soft, nontender, nondistended, normal active bowel sounds. BACK: No midline spine tenderness to palpation, step-off or crepitus EXTREMITIES: there are well-healed surgical amputations of the right 2nd through 5th digit with well-healed skin graft. Normal range of motion of all extremities. No edema. SKIN: Warm, dry, no rash. NEURO: Alert and oriented x3. No focal deficit. Moving all 4 limbs spontaneously PSYCH: Normal mood and affect. Course Course Emergency Course: 05:40 - The patient's exam is unremarkable. She has no complaints. I do not suspect the need for imaging at this time given the patient's low energy mechanism. I discussed the findings and recommendations with the patient. Di scussed return and emergency precautions including signs/symptoms of ACS and respiratory distress. The patient voiced understanding and agreement with the plan. All questions answered to her satisfaction. Vital Signs Vital signs: Vital Signs Temperature 97.6 F 04/12/24 05:24 Respiratory Rate 16 04/12/24 05:24 Blood Pressure 149/76 H 04/12/24 05:24 Pulse Oximetry 100 04/12/24 05:24 Oxygen Delivery Room Air 04/12/24 05:24 Temperature 97.6 F 04/12/24 05:24 Respiratory Rate 16 04/12/24 05:24 Blood Pressure 149/76 H 04/12/24 05:24 Pulse Oximetry 100 04/12/24 05:24 Oxygen Delivery Room Air 04/12/24 05:24 MDM - Fall MDM Narrative Medical decision making narrative: Plan: Primary care follow-up Differential Diagnosis Differential diagnosis: Likely other ( contusion of buttock, other) Discharge Plan Discharge Clinical Impression: Fall from wheelchair Qualifiers: Encounter type: initial encounter Qualified Code(s): W05.0XXA - Fall from non- moving wheelchair, initial encounter Patient Disposition: [facility]Asst Living Condition: Stable Instructions: Antibiotic Form, Contusion in Adults (ED) Additional Instructions: You were seen in the emergency department. Your exam is reassuring. I do not suspect the need imaging at this time. If you develop chest pain, shortness of breath, loss of consciousness, or if you have other emergent concerns for life, limb, or eyesight, return to the emergency department. Patient Language: Setswana Prescriptions: No Action atorvastatin 40 mg Tablet 40 mg PO HS lisinopril 20 mg Tablet 20 mg PO DAILY amlodipine [Norvasc] 5 mg Tablet 5 mg PO DAILY aspirin [Adult Low Dose Aspirin] 81 mg Tablet,Delayed Release (Dr/Ec) 81 mg PO DAILY tolterodine [Detrol] 2 mg Tablet 2 mg PO BID Acidophilus 1 cap PO BID magnesium oxide [MagOx] 400 mg (241.3 mg magnesium) Tablet 400 mg PO BID metformin 1,000 mg Tablet 1,000 mg PO BID Levemir U-100 Insulin 24 unit subcut HS Novolog U-100 Insulin aspart 5 units subcut AC potassium chloride 40 meq PO DAILY gabapentin [Neurontin] 300 mg Capsule 300 mg PO Q8HR 30 Days Qty: 90 0RF pantoprazole 40 mg Tablet,Delayed Release (Dr/Ec) 40 mg PO Q12HR 30 Days Qty: 60 0RF sucralfate 100 mg/mL Suspension 1,000 mg PO ACHS 30 Days Qty: 1200 0RF ondansetron HCl [Zofran] 4 mg tablet 4 mg PO Q8H PRN (Reason: nausea and vomiting) Qty: 20 0RF Follow-up/Referrals: Kaye,MD Crow [Primary Care Provider] - 2 Weeks Stand Alone Forms: [facility] Discharge Time of Disposition: 05:44
--- NOTE | 2024-04-12 05:46 | PC.NURSE ---
This RN called [facility] to state patient will be coming back to the facility, but needs a ride back and does not qualify for transport. This RN spoke with [facility], caregiver at the [facility] and she stated I will call our director and see what we can do because we don't have transport right now.
--- NOTE | 2024-04-12 06:53 | PC.NURSE ---
Patient was able to stand and pivot from stretcher to w/c with assist. Patient placed in w/c and taken to waiting room to wait for her cab ride home. patient has cab voucher for ride home. Patient transferred back to [facility] with her chart and belongings. Patient report called to Rosalia caregiver at [facility] at [phone].
== END 2024-04-12 06:56 ==
PROVIDERS: Emergency Provider Preventive Medicine Aerospace Medicine; PCP Internal Medicine
DX: I25.2 Old myocardial infarction (principal); I25.10 Atherosclerotic heart disease of native coronary artery without angina pectoris; E11.22 Type 2 diabetes mellitus with diabetic chronic kidney disease; N18.9 Chronic kidney disease, unspecified; E78.5 Hyperlipidemia, unspecified; Z86.73 Personal history of transient ischemic attack (TIA), and cerebral infarction without residual deficits; Z89.021 Acquired absence of right finger(s); Z79.82 Long term (current) use of aspirin; Z79.84 Long term (current) use of oral hypoglycemic drugs; Z79.899 Other long term (current) drug therapy; Z79.4 Long term (current) use of insulin; W05.0XXA Fall from non-moving wheelchair, initial encounter
CPT/HCPCS: 99282